=== PATIENT | male | born 1960 | race Asian ===

== ENCOUNTER 2019-11-28 15:42 | Outpatient (CLI) | payer BC ==
--- NOTE | 2019-11-28 16:23 | ULT ---
VENOUS DOPPLER ULTRASOUND OF THE LEFT LOWER EXTREMITY: 11/28/19 HISTORY: Left lower extremity pain and edema. TECHNIQUE: Velasquez scale ultrasound with color flow and spectral Doppler imaging of the deep venous system of the l eft lower extremity was performed. FINDINGS: There is good flow, compression, and augmentation noted in the left common femoral, femoral, deep fem oral, popliteal, posterior tibial and greater saphenous veins. IMPRESSION: No evidence of DVT in the left lower extremity. POS: [facility]
== END 2019-11-28 15:43 | disposition home or self-care (01) ==
LOC: ULT 15:42
PROVIDERS: ATTEND Internal Medicine Medical Oncology
DX: C71.3 Malignant neoplasm of parietal lobe (principal); R60.0 Localized edema; M79.605 Pain in left leg